=== PATIENT | male | born 2000 | race Caucasian/White ===

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

== ENCOUNTER 2018-05-02 10:19 | Emergency (ER) | payer OTHER ==
[2018-05-02 10:26] VITALS: BP 125/79; PULSE 70; RESP 18; TEMP 99.2; O2SAT 99
--- NOTE | 2018-05-02 11:18 | C.PDOC ---
History Of Present Illness 17 year old male presents to the emergency department complaining of a rash that started 2-3 days ago. Patient was outdoor in the sun and heat recently about 4 days ago but denies being around bushes or trees. He notes of itchiness but no fever, vomiting, chest tightness, or SOB. Patient is allergic to penicillin. Time Seen by Provider: 05/02/18 10:35 Chief Complaint (Nursing): Abnormal Skin Integrity History Per: Patient History/Exam Limitations: no limitations Onset/Duration Of Symptoms: Days Current Symptoms Are (Timing): Still Present Past Medical History Reviewed: Historical Data, Nursing Documentation, Vital Signs Vital Signs: Last Vital Signs Temp 99.2 F 05/02/18 10:24 Pulse 70 05/02/18 10:24 Resp 18 05/02/18 10:24 BP 125/79 05/02/18 10:24 Pulse Ox 99 05/02/18 11:31 Family History: States: No Known Family Hx - Social History Hx Alcohol Use: No Hx Substance Use: No - Immunization History Hx Tetanus Toxoid Vaccination: Yes Review Of Systems Except As Marked, All Systems Reviewed And Found Negative. Constitutional: Negative for: Fever, Chills Eyes: Negative for: Pain ENT: Negative for: Ear Pain Cardiovascular: Negative for: Chest Pain, Orthopnea Respiratory: Negative for: Shortness of Breath Gastrointestinal: Negative for: Nausea, Vomiting Skin: Positive for: Rash (associated with itching) Neurological: Negative for: Weakness, Numbness Physical Exam - Physical Exam Appears: Non-toxic, No Acute Distress Skin: Warm, Dry, Rash (Pinpoint papular rash on the extensor portions of bilateral arms and legs) Head: Atraumatic, Normacephalic Eye(s): bilateral: Normal Inspection Oral Mucosa: Moist Extremity: Normal ROM, No Tenderness, No Swelling Pulses: Left Radial: Normal, Right Radial: Normal Neurological/Psych: Oriented x3, Normal Speech, Normal Motor, Normal Sensation Gait: Steady ED Course And Treatment O2 Sat by Pulse Oximetry: 99 (RA) Pulse Ox Interpretation: Normal Disposition - Disposition Referrals: Blas Faulkner MD [Medical Doctor] - Disposition: HOME/ ROUTINE Disposition Time: 11:30 Condition: STABLE Additional Instructions: follow up with the medical doctor/clinic within 1-2 days. return if worsened. Prescriptions: Clotrimazole/Betamethasone [Lotrisone] 15 gm EXT BID #2 tube Triamcinolone 0.1% [Triamcinolone 0.1% Cream] 0.1 gm TP BID PRN #1 tube PRN Reason: Itching / Pruritus Instructions: Eczema (Atopic Dermatitis) Forms: [facility] (Kazakh) - Clinical Impression Clinical Impression: Dyshidrotic eczema - PA / CNC SERVICE ENGINEER / Resident Statement MD/DO has reviewed & agrees with the documentation as recorded. - Scribe Statement The provider has reviewed the documentation as recorded by the Scribe Jessica Reid All medical record entries made by the Neyibsarina were at my direction and personally dictated by me. I have reviewed the chart and agree that the record accurately reflects my personal performance of the history, physical exam, medical decision making, and the department course for this patient. I have also personally directed, reviewed, and agree with the discharge instructions and disposition.
== END 2018-05-02 11:34 | disposition home or self-care (01) ==
LOC: C.ER 10:19
DX: L30.1 Dyshidrosis [pompholyx] (principal)